=== PATIENT | female | born 1985 | race Caucasian/White ===

== ENCOUNTER 2017-09-25 10:43 | Emergency (ER) | payer OTHER ==
[~2017-09-25] VITALS: Ht 157.5 cm; Wt 127.2 kg
[~2017-09-25 10:43] MED LIST: BCP PO; CLARITIN,ALAVAR10 MG PO; CLARITIN-D 21 TABLET PO; CLARITIN10 M3 PO; CORICIDIN HBP1 EAC1 PO; Claritin,Alavart PO; EFFEXOR75 MG PO; Effexor PO; IBUPROFEN800 MG PO; NAPROSYN375 MG PO; PREDNISONE10 M1 PO; SEASONIQUE 01 TABLET PO; TESSALON PERLE100 MG PO; ZYRTEC-D1 TABLE1 PO; ZYRTEC10 M2 PO
[2017-09-25 11:07] VITALS: BP 167/100
[2017-09-25] MEDS ORDERED: PREDNISONE10 MG PO (13:54)
== END 2017-09-25 14:10 | disposition home or self-care (01) ==
LOC: EME 10:43
DX: L50.9 Urticaria, unspecified (principal); F41.9 Anxiety disorder, unspecified
CPT/HCPCS: 99281; 99283